=== PATIENT | male | born 1960 | race Caucasian/White ===

== ENCOUNTER 2021-05-20 17:36 | Emergency (ER) | payer OTHER ==
[~2021-05-20] VITALS: Ht 172.7 cm; Wt 81.7 kg
--- NOTE | ~2021-05-20 | EMS ---
[address] [address] EMS Patient Care Report Name: STEWART WALLS Room #: DEP SKYLER Mason#: [id number] Admission: 05/20/21 Attend Phys: Discharge: 05/20/21 Date of : 64 Report #: [id number] THIS REPORT FOR: //name// Report Transmitted: 05/21/2021 09:17 EMS Care Summary [place], [place]/[facility] Incident [id number] @ 05/20/2021 17:11 Incident Location [address] [place] [id number] Patient STEWART QUINTANA Male, 60 Years 1960 Patient Address [address] [place] [address] Patient History None Reported, Patient Allergies No known allergies, Patient Medications Lexapro, Chief Complaint Suicidal thoughts with a plan, anxiety Disposition Transported No Lights/[place] Reason Psychiatric Problem/Abnormal Behavior/Suicide Attempt Transported To [facility] Narrative Patient is walking to ambulance with police upon arrival. Patient called 911 for suicidal thoughts with a plan. Patient would like to get help to "feel better in my own skin". Patient is calm and cooperative and would like help. He thinks he needs medication adjustments. [facility] [address] [place] [address] EMS Patient Care Report Name: STEWART WALLS Room #: DEP Isabella#: [id number] Admission: 05/20/21 Attend Phys: Discharge: 05/20/21 Date of : 64 Report #: [id number] Enroute to the er there are no changes. He is transported with seat belts secured. Care to RN. Initial Vitals @17:23P: 70,R: 18,BP: 172/90,GCS: 15,Revised Trauma: 12, @17:28P: 100,R: 18,Pain: 0/10,GCS: 15,Revised Trauma: 12, Assessments @17:23MENTAL:No Abnormalities,SKIN:HEENT:Head/Face: No Abnormalities,Neck/Airway: No Abnormalities,LUNG SOUNDS:General: No Abnormalities,ABDOMEN:General: No Abnormalities,PELVIS//GI:No Abnormalities,EXTREMITIES:Left Arm: No Abnormalities,Right Arm: No Abnormalities,Left Leg: No Abnormalities,Right Leg: No Abnormalities,PULSE:Radial: 2+ Normal,NEURO: Impression Behavioral/psychiatric episode Procedures @17:22ALS AssessmentResponse: UnchangedSucceeded Timeline 17:11,Call Received 17:11,Dispatch Notified 17:11,Dispatched 17:12,En Route 17:21,On Scene 17:22,At Patient 17:22,ALS Assessment,Response: UnchangedSucceeded, 17:23,Depart Scene 17:23,BP: 172/90 M,PULSE: 70,RR: 18 R,SPO2: Ox,ETCO2: ,BG: ,PAIN: ,GCS: 15, 17:28,BP: 160/ M,PULSE: 100,RR: 18 R,SPO2: Ox,ETCO2: ,BG: ,PAIN: 0,GCS: 15, 17:33,At Destination 18:08,Call Closed Disclaimer v1.1 Copyright 2020 [employer] This EMS Care Summary contains data elements from the applicable legal record (which may be displayed differently). It is designed to provide pertinent information for the following purposes: continuity of care, clinical quality, and state data reporting. The complete legal record is available to ED staff and administrators of the receiving hospital in [employer]'s Patient Tracker. All data is provided "as is."
[2021-05-20] MEDS ORDERED: ADDERALL 20 MG20 M1 PO (17:53)
[2021-05-20] MEDS ORDERED: GABAPENTIN600 M1 PO ×2 (17:53)
[2021-05-20] MEDS ORDERED: LEXAPRO 10 MG T10 M2 PO (17:54)
[2021-05-20 18:30] LABS: HEMATOCRIT 43.1 % (42.0-52.0); HEMOGLOBIN 14.5 gm/dL (14.0-18.0); MCH 31.2 pg (26.0-34.0); MCHC 33.6 g/dL (28.0-37.0); MCV 92.7 fL (80.0-100.0); RBC 4.66 mil/uL (4.50-6.00); RDW 13.5 % (10.5-14.5); WBC 7.9 thou/uL (4.0-11.0)
[2021-05-20 18:43] LABS: AMP/METHAMP Negative (Negative); BARBITURATES Negative (Negative); BENZODIAZEPINES Negative (Negative); COCAINE Negative (Negative); METHADONE Negative (Negative); OPIATES Negative (Negative); PCP Negative (Negative)
[2021-05-20 18:45] LABS: ANION GAP 7 mmol/L (7-16); BUN 9 mg/dL (7-18); CALCIUM 8.7 mg/dL (8.5-10.1); CHLORIDE 105 mmol/L (98-107); CO2 28 mmol/L (21-32); GLUCOSE 95 mg/dL (74-106); POTASSIUM 4.3 mmol/L (3.5-5.1); SODIUM 140 mmol/L (136-145)
[2021-05-20 18:52] LABS: ALBUMIN 3.8 g/dL (3.4-5.0); SALICYLATE 4.2 mg/dL (2.8-20.0); SGOT 20 U/L (15-37); SGPT 32 U/L (16-63); TOTAL BILIRUBIN 0.2 mg/dL (0.2-1.0); TOTAL PROTEIN 7.3 g/dL (6.4-8.2)
[2021-05-20 23:48] VITALS: BP 122/80
== END 2021-05-20 23:13 ==
LOC: ER 17:36
PROVIDERS: Nurse Practitioner Family
DX: R45.851 Suicidal ideations (principal); Z20.822 Contact with and (suspected) exposure to COVID-19; F31.9 Bipolar disorder, unspecified; F10.10 Alcohol abuse, uncomplicated; F17.210 Nicotine dependence, cigarettes, uncomplicated; Z79.899 Other long term (current) drug therapy